=== PATIENT | female | born 1990 | race Caucasian/White ===

== ENCOUNTER 2022-04-11 22:45 | Emergency (ER) | payer MEDICAID, OTHER ==
[~2022-04-11] VITALS: Ht 165.1 cm; Wt 107.5 kg
[2022-04-11 22:56] VITALS: BP 156/99
--- NOTE | 2022-04-11 23:20 | NUR ---
Dr. Childs examming patient.
[2022-04-12] MEDS ORDERED: BPM/473S78 PO (00:36)
[2022-04-12] MEDS ORDERED: AZIT250T4 PO (00:36)
[2022-04-12 00:51] VITALS: BP 144/62
--- NOTE | 2022-04-12 00:51 | NUR ---
Patient discharged with v/s stable. Written and verbal after care instructions given and explained. Patient alert, oriented and verbalized understanding of instructions. Ambulatory with steady gait. All questions addressed prior to discharge. ID band removed. Patient advised to follow up with PMD. Rx of Azithromycin and Brompheniramine given. Patient educated on indication of medication including possible reaction and side effects. Opportunity to ask questions provided and answered.
== END 2022-04-12 00:51 | disposition home or self-care (01) ==
LOC: MED 22:45
DX: J18.9 Pneumonia, unspecified organism (principal); I10 Essential (primary) hypertension; R05.9 Cough, unspecified
CPT/HCPCS: 71045; 99283

== ENCOUNTER 2022-09-11 20:41 | Emergency (ER) | payer OTHER ==
[~2022-09-11] VITALS: Ht 160 cm; Wt 114.3 kg
[~2022-09-11 20:41] MED LIST: AZIT250T4 PO; BPM/473S78 PO
[2022-09-11 22:04] VITALS: BP 147/81
--- NOTE | 2022-09-11 22:50 | NUR ---
PT AMBULATED TO ED 2, PT PLACED IN GOWN AND RADIOPHARMACIST, PT C/O CHEST PRESSURE, PT RECENTLY RECIEVE VACCINE AND HAS HAD A COUGH. NKDA, DENIES ANY MEDICAL HISTOEY.
--- NOTE | 2022-09-11 23:10 | NUR ---
SWABS COLLECTED AND WALKED TO LAB
--- NOTE | 2022-09-11 23:14 | NUR ---
31/F BIB SELF C/C CHEST CONGESTION, COUGH, RUNNY NOSE X3DAYS. DENIES ANY FEVER OR CHILLS. PER PATIENT WHEN SHE COUGH SHE HAS CHEST PRESSURE 7/10. PMHX PREDM NKA
[2022-09-12 00:07] LABS: BASOPHILS % (AUTO) 0.4 % (0.0-2.0); EOSINOPHILS # (AUTO) 0.3 K/uL (0-0.4); EOSINOPHILS % (AUTO) 3.6 % (0.0-4.0); HEMATOCRIT 37.7 % (36-48); LYMPHOCYTES # (AUTO) 2.5 K/uL (2.5-16.5); LYMPHOCYTES % (AUTO) 28.9 % (20.5-51.1); MEAN CORPUSCULAR HEMOGLOBIN 24 pg (27-31); MEAN CORPUSCULAR HGB CONC 32 g/dL (33-37); MEAN CORPUSCULAR VOLUME 73.8 fL (80-94); MONOCYTES # (AUTO) 0.7 K/uL (0.8-1.0); NEUTROPHILS # (AUTO) 5.2 K/uL (1.8-7.7); NEUTROPHILS % (AUTO) 59.1 % (42.2-75.2); PLATELET COUNT (AUTO) 258 K/uL (140-450); RED BLOOD CELL COUNT(AUTO) 5.11 MIL/uL (4.20-5.40); RED CELL DISTRIBUTION WIDTH 19.3 % (11.6-13.7); WHITE BLOOD COUNT (AUTO) 8.8 K/uL (4.8-10.8)
[2022-09-12] MEDS ORDERED: NAPR-54 PO (00:32)
[2022-09-12] MEDS ORDERED: ROBAC PO (00:32)
--- NOTE | 2022-09-12 00:35 | NUR ---
GARO ANN AT BEDSIDE
--- NOTE | 2022-09-12 00:40 | NUR ---
Patient discharged with v/s stable. Written and verbal after care instructions given and explained. Patient alert, oriented and verbalized understanding of instructions. Ambulatory with steady gait. All questions addressed prior to discharge. ID band removed. Patient advised to follow up with PMD. Rx of NAPROXEN AND CODEINE PHOSPHATE/GUAIFENESI given. Patient educated on indication of medication including possible reaction and side effects. Opportunity to ask questions provided and answered.
[2022-09-12 00:41] VITALS: BP 118/61
== END 2022-09-12 00:40 | disposition home or self-care (01) ==
LOC: MED 20:41
DX: J06.9 Acute upper respiratory infection, unspecified (principal); Z20.822 Contact with and (suspected) exposure to COVID-19; H93.19 Tinnitus, unspecified ear; E07.9 Disorder of thyroid, unspecified; D64.9 Anemia, unspecified; Z98.890 Other specified postprocedural states; Z79.899 Other long term (current) drug therapy
CPT/HCPCS: 36415; 71045; 85025; 87426; 87804; 93005; 99285; Q0092

== ENCOUNTER 2023-01-19 16:59 | Emergency (ER) | payer OTHER ==
[~2023-01-19] VITALS: Ht 165.1 cm; Wt 113.9 kg
[~2023-01-19 16:59] MED LIST changes: +NAPR-54 PO; +ROBAC PO
[2023-01-19 17:23] VITALS: BP 124/62
--- NOTE | 2023-01-19 17:42 | NUR ---
URINE COLLECTED AND SENT TO LAB
--- NOTE | 2023-01-19 17:42 | NUR ---
32/F WALKED IN C/O NVD ONSET LAST NIGHT. AFEBRILE. DENIES BLOOD IN VOMIT OR DIARRHEA.
[2023-01-19 17:50] LABS: APPEARANCE,URINE CLEAR (CLEAR); BILIRUBIN,URINE NEGATIVE (NEGATIVE); BLOOD, URINE NEGATIVE (NEGATIVE); COLOR,URINE YELLOW (YELLOW); LEUKOCYTE ESTERASE ,URINE NEGATIVE (NEGATIVE); NITRITE, URINE NEGATIVE (NEGATIVE); UGLUCOSE NEGATIVE (NEGATIVE)
[2023-01-19 18:41] LABS: RBC,URINE NONE SEEN /HPF (0-5); WBC,URINE NONE SEEN /HPF (0-5)
[2023-01-19 18:42] LABS: TRICHOMONAS,URINE None Seen /HPF (None Seen); YEAST,URINE None Seen /HPF (None Seen)
[2023-01-19] MEDS ORDERED: IMO2 PO (18:57)
[2023-01-19] MEDS ORDERED: FAMO-90 PO (18:57)
[2023-01-19] MEDS ORDERED: ONDA-188 PO (18:57)
== END 2023-01-19 19:05 | disposition home or self-care (01) ==
LOC: MED 16:59
DX: R11.10 Vomiting, unspecified (principal); R19.7 Diarrhea, unspecified; R03.0 Elevated blood-pressure reading, without diagnosis of hypertension; Z79.899 Other long term (current) drug therapy
CPT/HCPCS: 81001; 81025; 99283